=== PATIENT | male | born 1960 | race Caucasian/White ===

== ENCOUNTER 2018-06-12 06:54 | Day surgery (SDC) | payer OTHER ==
[~2018-06-12 06:54] MED LIST: LIDOCAINE 2% MDV 20 ML VIAL As Ordered; PROPOFOL 200 MG/20 ML VIAL As Ordered
[2018-06-12] MEDS: NS 1,000 ML IV (07:20)
== END 2018-06-12 09:03 | disposition home or self-care (01) ==
LOC: M OPP 06:54
DX: Z12.11 Encounter for screening for malignant neoplasm of colon (principal); K62.1 Rectal polyp; K64.1 Second degree hemorrhoids; K57.30 Diverticulosis of large intestine without perforation or abscess without bleeding; M19.90 Unspecified osteoarthritis, unspecified site; J44.9 Chronic obstructive pulmonary disease, unspecified; I51.7 Cardiomegaly; F17.210 Nicotine dependence, cigarettes, uncomplicated; Z79.82 Long term (current) use of aspirin; Z79.899 Other long term (current) drug therapy; Z80.0 Family history of malignant neoplasm of digestive organs
CPT/HCPCS: 45380

== ENCOUNTER → 2018-12-09 | Outpatient (CLI) | payer OTHER ==
[~2018-12-09] MED LIST changes: +ALEV220T26 PO; +ASPI1TAB15 PO; -LIDOCAINE 2% MDV 20 ML VIAL As Ordered; +PROAAER10 INH; -PROPOFOL 200 MG/20 ML VIAL As Ordered; +SYMB16INH INH
[2018-12-09 17:32] LABS: BASO # 0.1 10^3/uL (0.0-0.2); EOS # 0.2 10^3/uL (0.0-0.50); EOS % 2.6 % (0.0-3.0); HEMATOCRIT 43.5 % (42.0-52.0); HEMOGLOBIN 14.9 g/dl (13.5-17.5); LYMPH # 1.5 10^3/uL (1.5-4.5); LYMPH % 18.6 % (24.0-44.0); MEAN CORPUSCULAR HEMOGLOBIN 31.4 pg (27.0-33.0); MEAN CORPUSCULAR HGB CONC 34.3 g/dl (32.0-36.5); MEAN CORPUSCULAR VOLUME 91.8 fl (80.0-96.0); MONO # 0.6 10^3/uL (0.0-0.8); MONO % 6.9 % (0.0-5.0); NEUTROPHILS # 5.7 10^3/uL (1.8-7.7); NEUTROPHILS % 70.5 % (36.0-66.0); PLATELET COUNT, AUTOMATED 277 10^3/uL (150-450); RED BLOOD COUNT 4.74 10^6/uL (4.30-6.10); WHITE BLOOD COUNT 8.1 10^3/uL (4.0-10.0)
[2018-12-09 18:02] LABS: BLOOD UREA NITROGEN 15 MG/DL (7-18); CARBON DIOXIDE LEVEL 29 MEQ/L (21-32); CHLORIDE LEVEL 104 MEQ/L (98-107); CREATININE FOR GFR 0.74 MG/DL (0.70-1.30); GLOMERULAR FILTRATION RATE > 60.0 (>49); GLUCOSE, FASTING 61 MG/DL (70-100); POTASSIUM SERUM 4.1 MEQ/L (3.5-5.1); SODIUM LEVEL 141 MEQ/L (136-145)
== END ==
LOC: M LAB 16:30
PROVIDERS: ATTEND Surgery Vascular Surgery
DX: I70.213 Atherosclerosis of native arteries of extremities with intermittent claudication, bilateral legs (principal)

== ENCOUNTER → 2018-12-19 | Outpatient (CLI) | payer OTHER ==
[~2018-12-19] MED LIST changes: +HEPARIN 1,000 UNITS/ML 10ML VIAL (FOR RADIOLOGY& DIALYSIS ONLY) As Ordered ONE; +ISOVUE-300 61% 50ML VIAL (Q9967) As Ordered ONE; +LIDOCAINE 2% MDV 20 ML VIAL As Ordered ONE; +MIDAZOLAM INJ 2 MG/2 ML VIAL (J2250) As Ordered ONE; +fentaNYL 100 MCG/2 ML INJECTION (J3010) As Ordered ONE
--- NOTE | 2018-12-19 10:52 | REP ---
Clinical: Abdominal aortic aneurysm. Technique: Axial noncontrast images from the lung bases to the pubic symphysis with coronal and sagittal re-formations. Findings: Small amounts of residual contrast within the urinary tract collecting system consistent with the prior interventional procedure. Abdominal aorta demonstrates moderate atherosclerotic changes including scattered intimal calcifications and small amount of mural thrombus. There appears to be a very subtle dumbbell shaped aneurysmal contour to the infrarenal abdominal aorta which measures 3.2 cm maximal diameter with the aorta tapering to 2.1 cm maximal diameter just above the bifurcation to common iliac arteries where small curvilinear calcifications are identified deep to the aortic contour which raise the possibility of partially calcified mural thrombus versus subtle dissection. No periaortic fluid or inflammatory stranding noted. Lung bases suggest moderate COPD and emphysematous changes. Liver, spleen, pancreas, gallbladder, bilateral adrenal glands and kidneys appear relatively normal. The enteric system is without obstruction or acute inflammatory process. Pelvis demonstrates normal appearing bladder and age appropriate prostate/seminal vesicles. No ascites. No free air. No adenopathy. Musculoskeletal structures demonstrate age-related degenerative changes. Impression: Atherosclerotic changes of the aorta with subtle dumbbell shaped aneurysmal dilatation to the infrarenal aorta as detailed above. Electronically Signed by Carlos Madsen MD 12/19/2018 10:44 A
--- NOTE | 2019-01-15 15:31 | REPIR ---
DATE OF PROCEDURE: 12/19/2018 ATTENDING SURGEON: Dr. Diana Correa DUMP ATTENDANT: PREOPERATIVE DIAGNOSIS: Right lower extremity pain. POSTOPERATIVE DIAGNOSIS: Right lower extremity pain. PROCEDURE: Aortogram, iliofemoral angiogram, selective right common femoral artery catheter placement with right lower extremity angiogram, selective right superficial femoral artery catheter placement with right lower extremity angiogram. INDICATION: The patient is a 58-year-old male with right lower extremity claudication and an ultrasound showing atherosclerotic arterial occlusive disease in the superficial femoral and popliteal arteries. The patient will undergo an angiogram and possible angioplasty stent and/or atherectomy. Risks, benefits and alternative treatment options were discussed with the patient. ANESTHESIA: Local with sedation with 1 mg Versed and 50 mcg of fentanyl and 10 mL of 2% lidocaine. FLUORO TIME: 0.7 minutes. CONTRAST: 12.5 mL. SEDATION TIME: From 9:20 a.m. to 10:02 a.m. for a total of 42 minutes. COMPLICATIONS: None. DRAINS: None. SPECIMENS: None. IMPLANT: Left common femoral arteriotomy closure with a MYNX. DESCRIPTION OF PROCEDURE: The patient was taken to the angiography suite and placed supine on the angiography table and then prepped and draped in a standard surgical fashion. The left common femoral artery was cannulated with a micropuncture needle. A catheter was placed in the aorta and aortogram was performed. The catheter was pulled down to the level of the bifurcation of the iliac arteries and an iliofemoral angiogram was performed. A catheter was directed over the bifurcation of the iliac arteries and placed in the right common femoral artery and right lower extremity angiogram was performed showing complete occlusion of the distal right superficial femoral and proximal popliteal artery. Catheters and wires were removed and a MYNX closure device was used to close the arteriotomy in the left common femoral artery with an additional 10 minutes of adjunctive pressure applied for hemostasis. Dressings were then applied. The patient tolerated the procedure well. All instrument, sponge, and needle counts were correct at the end of the case. There were no complications. Dr. Correa was present for and directed the entire case. The patient was transferred to the holding area and subsequently discharged in stable condition.
== END | disposition home or self-care (01) ==
LOC: M IRPRO 06:23
PROVIDERS: ATTEND Surgery Vascular Surgery
DX: I70.211 Atherosclerosis of native arteries of extremities with intermittent claudication, right leg (principal); I70.92 Chronic total occlusion of artery of the extremities
CPT/HCPCS: 36246; 74176; 75710; C1760; C1769; C1887; C1894; G0269; J2250; J3010; Q9967

== ENCOUNTER → 2018-12-26 | Outpatient (CLI) | payer OTHER ==
[~2018-12-26] MED LIST changes: +PROTAMINE SULF INJ 50 MG/5 ML VIAL (J2720) As Ordered ONE
--- NOTE | 2019-01-15 15:58 | REPIR ---
DATE OF PROCEDURE: 12/26/2018 ATTENDING SURGEON: Dr. 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 PROCEDURE: Ultrasound-guided right posterior tibial artery cannulation, right lower extremity angiogram, right superficial femoral and popliteal artery angioplasty and stent with a 7 x 120 Mary Drug-Eluting Stent, Mynx closure of the left common femoral arteriotomy. INDICATION: The patient is a 58-year-old male with severe debilitating right lower extremity claudication who had undergo angiography and found to have a right superficial femoral and popliteal artery occlusion. The patient will undergo angiography with possible angioplasty stent and/or atherectomy. Risks, benefits, and alternative options were discussed with the patient. ANESTHESIA: Was local with sedation with 5 mg Versed, 250 mcg of fentanyl and 20 mL of 2% lidocaine. STATION TIME: Was from 9:17 a.m. to 12:36 p.m. FLUORO TIME: 44.1 minutes. CONTRAST: 30 mL. HEPARIN: 7000 units followed by an additional 4000 units. PROTAMINE: 50 mg. COMPLICATIONS: None. DRAINS: None. SPECIMENS: None. IMPLANTS: 7 x 120 Mary Drug-Eluting Stent. PROCEDURE: The patient was taken to the angiography suite, placed supine on the angiography room table and then prepped and draped in a standard surgical fashion. Left common femoral artery was cannulated and multiple attempts were made to traverse through the occlusion in the right lower extremity from the left femoral approach without success. The right posterior tibial artery was then cannulated using ultrasound guidance and the chronic total occlusion was crossed retrograde and antegrade, the wire was snared and pulled through the sheath after which the chronic total occlusion in the right superficial femoral and popliteal arteries with angioplasty and stented with a 7 x 120 Mary Drug-Eluting Stent postdilated with a 6 x 200 balloon. Catheters and wires were removed after angiography showed good angiographic result with resolution of the chronic total occlusion. A Mynx closure device was used close the arteriotomy in the left common femoral artery with an additional 10 minutes of adjunctive pressure applied for hemostasis. The cannulation in the right posterior tibial artery was compressed manually for hemostasis. Dressings were then applied. The patient tolerated the procedure well. All instruments, sponge, and needle counts were correct at the end the case. There were no complications. Dr. Correa was present for and directed the entire case. The patient was transferred to holding area and subsequent discharged home in stable condition.
== END | disposition home or self-care (01) ==
LOC: M IRPRO 07:59
PROVIDERS: ATTEND Surgery Vascular Surgery
DX: I70.211 Atherosclerosis of native arteries of extremities with intermittent claudication, right leg (principal); I70.92 Chronic total occlusion of artery of the extremities; I71.4 Abdominal aortic aneurysm, without rupture
CPT/HCPCS: 36140; 37226; C1725; C1760; C1769; C1874; C1876; C1887; C1894; J2250; J2720; J3010; Q9967

== ENCOUNTER → 2019-01-17 | Outpatient (CLI) | payer OTHER ==
[~2019-01-17] MED LIST changes: -HEPARIN 1,000 UNITS/ML 10ML VIAL (FOR RADIOLOGY& DIALYSIS ONLY) As Ordered ONE; -ISOVUE-300 61% 50ML VIAL (Q9967) As Ordered ONE; -LIDOCAINE 2% MDV 20 ML VIAL As Ordered ONE; -MIDAZOLAM INJ 2 MG/2 ML VIAL (J2250) As Ordered ONE; -PROTAMINE SULF INJ 50 MG/5 ML VIAL (J2720) As Ordered ONE; -fentaNYL 100 MCG/2 ML INJECTION (J3010) As Ordered ONE
--- NOTE | 2019-01-17 10:38 | REP ---
UNILATERAL RIGHT LOWER EXTREMITY ARTERIAL DOPPLER ULTRASOUND: HISTORY: Peripheral vascular disease. Recent angioplasty and stent placement. On December 26, 2018 the patient had a distal SFA angioplasty. The stent is visible in the distal SFA and popliteal artery on the right. Triphasic and biphasic waveforms are seen throughout the right lower extremity. Some mixed plaquing is visible. Ankle brachial index on the right is normal at 1.06. Velocity chart right lower extremity: Right SIGNAL CONSTRUCTOR 158 cm/s Profunda 65 Proximal SFA 122 Mid SFA 121 Distal SFA 110 Popliteal 56 Proximal MATTHEW 103 Tibioperoneal trunk 90 Proximal FISHER MUSSEL 80 Distal FISHER MUSSEL 110 Distal AT A 97 Electronically Signed by Kofi Shane MD 01/17/2019 02:40 P
== END ==
LOC: M RAD 07:21
PROVIDERS: ATTEND Surgery Vascular Surgery
DX: I73.9 Peripheral vascular disease, unspecified (principal); Z95.5 Presence of coronary angioplasty implant and graft

== ENCOUNTER → 2019-07-28 | Outpatient (CLI) | payer OTHER ==
--- NOTE | 2019-07-28 12:52 | REP ---
ULTRASOUND ABDOMINAL WALL: Real-time sonographic evaluation of the anterior abdominal wall performed in the supraumbilical region to evaluate a possible abnormality which is also painful. At that location, there is an oval area of fluid and small amount of fat compatible with a hernia. This is along the anterior aspect of the rectus abdominis muscle. There is a defect in the muscle 4 x 8 mm. The hernia sac measures 2.2 x 0.8 x 1.7 cm. It is not reducible with transducer pressure. There is no internal bowel. This does not increase with Valsalva maneuver. IMPRESSION: Small midline anterior abdominal hernia in the supraumbilical region contains fat and fluid as discussed in detail above. The defect measures 4 x 8 mm. It is not reducible. Electronically Signed by Germán Benites MD 07/28/2019 04:41 P
== END ==
LOC: M RAD 06:47
PROVIDERS: ATTEND Surgery
DX: K43.9 Ventral hernia without obstruction or gangrene (principal)

== ENCOUNTER → 2019-08-25 | Outpatient (CLI) | payer OTHER ==
--- NOTE | 2019-08-25 09:01 | REP ---
RIGHT LOWER EXTREMITY DUPLEX DOPPLER ARTERIAL ULTRASOUND: Real-time ultrasound evaluation and duplex Doppler interrogation of right lower extremity arterial system performed and compared to a prior study of 01/17/2019. RAISA is 1.1. Once again there is a stent in the distal right superficial femoral artery and another in the right popliteal artery, by approximately 2 cm gap. Triphasic and biphasic waveforms are seen diffusely throughout the right lower extremity. Both stents demonstrate patent internal flow. There are relatively normal flow velocities throughout the right lower extremity arterial system. There is somewhat decreased velocity measured within the left popliteal stent, but this could be artifactual. RIGHT Peak systolic velocity common femoral artery 108.0 cm/s Profunda 70.4 cm/s Proximal SFA 107.0 cm/s Mid SFA 65.0 cm/s Distal SFA 156.0 cm/s SFA stent 183.0 cm/s Post SFA stent 34.0 cm/s Popliteal stent 39.0 cm/s Post popliteal stent 106.0 cm/s Proximal MATTHEW 88.0 cm/s Tibioperoneal trunk 109.0 cm/s Proximal SENIOR DESIGN ENGINEER 64.0 cm/s Distal SENIOR DESIGN ENGINEER 85.0 cm/s Distal MATTHEW 69.0 cm/s IMPRESSION: Patent stents in the distal right SFA and popliteal arteries as discussed above. No compelling duplex Doppler sonographic evidence of hemodynamically significant stenosis. Electronically Signed by Germán Benites MD 08/25/2019 11:23 P
== END ==
LOC: M RAD 06:17
PROVIDERS: ATTEND Physician Assistant
DX: I70.201 Unspecified atherosclerosis of native arteries of extremities, right leg (principal)

== ENCOUNTER → 2020-03-03 | Outpatient (CLI) | payer OTHER ==
--- NOTE | 2020-03-04 05:08 | REP ---
Clinical: Status post right femoral artery/popliteal artery stent placement. Technique: Real time ortiz scale and color Doppler evaluation of the bilateral lower extremity arterial vasculature using linear high frequency transducer. Findings: Right lower extremity demonstrates patent right distal SFA/popliteal artery stent. Moderate stenosis through the mid right superficial artery noted along with moderate generalized atherosclerotic changes. Triphasic and biphasic arterial wave patterns noted. Left lower extremity demonstrates mild generalized atherosclerotic plaquing without significant stenosis. Triphasic and biphasic arterial wave patterns noted. Peak systolic velocities (cm/sec) RIGHT LEFT Common femoral artery 92 123 Profunda femoris 52 101 SFA (proximal) 129 94 SFA (mid) 108/197 73 SFA (distal) stented 84 Popliteal artery stented 86 MATTHEW (prox.) 100 73 Tibioperoneal trunk 62 68 LOAN OFFICER (prox.) 95 61 LOAN OFFICER (distal) 83 46 MATTHEW (distal) 76 62 I. Proximal stent in the distal superficial femoral artery Pre stent 131 cm/sec Proximal stent 166 Mid stent 108 Distal stent 41 II. Distal stent extending through the popliteal artery Proximal stent 47 cm/sec Mid stent 44 Distal stent 46 Impression: 1. Patent right SFA/popliteal stent with velocities as noted above. 2. Moderate stenosis through the mid right superficial femoral artery. 3. Mild/moderate generalized atherosclerotic changes. Electronically Signed by Carlos Madsen MD 03/04/2020 05:00 A
== END ==
LOC: M RAD 06:54
PROVIDERS: ATTEND Physician Assistant
DX: I70.213 Atherosclerosis of native arteries of extremities with intermittent claudication, bilateral legs (principal)

== ENCOUNTER → 2020-04-05 | Outpatient (CLI) | payer OTHER ==
--- NOTE | 2020-04-06 03:47 | REP ---
Clinical: Possible abdominal aortic aneurysm. Technique: Real time ortiz scale ultrasound examination using curved array transducer. Findings: Mild atheromatous changes noted. There is evidence for a mild mid to distal abdominal aortic aneurysm which measures 3.6 x 3.7 cm maximal diameter and 6.9 cm in craniocaudal length tapering to normal caliber at the level of the iliac bifurcation. Relation of the aneurysm to the renal arteries cannot be evaluated due to interposed bowel gas. Proximal aorta: 2.9 x 3.0 cm Aorta at renal arteries: Obscured by bowel gas Mid aorta: 2.2 x 2.3 cm Distal aorta: 3.6 x 3.7 cm Right common iliac artery: 1.0 x 1.1 cm Left common iliac artery: 1.2 x 1.3 cm Impression: Mild mid to distal abdominal aortic aneurysm. Electronically Signed by Carlos Madsen MD 04/06/2020 03:39 A
== END ==
LOC: M RAD 08:37
PROVIDERS: ATTEND Physician Assistant
DX: I71.4 Abdominal aortic aneurysm, without rupture (principal)

== ENCOUNTER → 2020-11-22 | Outpatient (CLI) | payer OTHER ==
[~2020-11-22] MED LIST changes: +ASPI-546 PO; -ASPI1TAB15 PO
--- NOTE | 2020-11-22 07:51 | REP ---
INDICATION: AAA COMPARISON: None TECHNIQUE: Axial noncontrast images from the thoracic inlet to the upper abdomen with coronal and sagittal reformations. This CT examination was performed using the following dose reduction techniques: Automated exposure control, adjustment of mA and/or kv according to the patient's size, and use of iterative reconstruction technique. FINDINGS: Thoracic aorta demonstrates mild partially calcified atheromatous plaquing without aneurysm. The ascending thoracic aorta measures up to 3.3 cm maximal diameter while the descending thoracic aorta tapers from 2.6 cm to 2.3 cm diameter. Heart and pericardium are grossly normal. Pulmonary vasculature appears normal. Moderate to advanced COPD/emphysematous changes noted with mild bronchiectasis. No consolidation, suspicious nodule or mass. No effusion. No pneumothorax. No adenopathy. Surrounding musculoskeletal structures are intact and without acute osseous abnormality incidental note is made of suspected old healed sternal fracture best identified on sagittal reformations. IMPRESSION: 1. No evidence for thoracic aortic aneurysm. 2. Moderate to advanced COPD/emphysematous changes. <Electronically signed by Carlos Madsen > 11/22/20 0616
--- NOTE | 2020-11-22 07:57 | REP ---
INDICATION: AAA COMPARISON: 12/19/2018 TECHNIQUE: Axial noncontrast images from the lung bases to the pubic symphysis with coronal and sagittal reformations. This CT examination was performed using the following dose reduction techniques: Automated exposure control, adjustment of mA and/or kv according to the patient's size, and use of iterative reconstruction technique. FINDINGS: The aorta demonstrates mixed atherosclerotic changes with partially calcified intimal changes and elements of soft plaquing. There is mild stable aneurysmal dilatation to the infrarenal aorta which measures up to approximately 3.4 cm maximal diameter. No periaortic inflammatory stranding or fluid identified. The distal aorta just above the bifurcation to iliac arteries tapers to normal and measures 2.2 cm diameter with the bilateral common iliac arteries measuring 13 mm diameter. Liver, spleen, pancreas, gallbladder, right adrenal gland and bilateral kidneys are normal. Left adrenal gland demonstrates stable benign appearing hyperplastic changes. The enteric system is without obstruction or acute inflammatory process. Moderate fecal stasis is suggested. Pelvis demonstrates normal bladder and mildly prominent prostate gland measuring approximately 4 cm maximal transverse diameter. No ascites. No free air. No significant intraperitoneal or retroperitoneal adenopathy. Musculoskeletal structures demonstrate age-related changes without acute osseous abnormality. IMPRESSION: Moderate mixed atheromatous changes to the aorta with mild aneurysmal dilatation measuring up to 3.4 cm maximal diameter. <Electronically signed by Carlos Madsen > 11/22/20 0751
== END ==
LOC: M RAD 06:55
PROVIDERS: ATTEND Physician Assistant
DX: I71.4 Abdominal aortic aneurysm, without rupture (principal); J44.9 Chronic obstructive pulmonary disease, unspecified

== ENCOUNTER → 2020-11-25 | Outpatient (CLI) | payer OTHER ==
--- NOTE | 2020-11-25 07:55 | REP ---
INDICATION: ABD PAIN COMPARISON: CT dated 11/22/2020 TECHNIQUE: Real time B-mode ortiz scale ultrasound examination using curved array transducer. FINDINGS: Liver, spleen, and pancreas are normal in contour, size, echogenicity, and overall appearance. Incidental 10 mm echogenic focus in the right inferior hepatic segment suggestive of hemangioma. No focal pancreatic or splenic lesions are identified. The spleen measures 9.6 x 4.8 x 10.4 cm (splenic index: 479). The gallbladder and biliary ductal system are normal and without gallstones, wall thickening, or pericholecystic fluid. No biliary ductal dilatation is appreciated and the common bile duct measures 3.4 mm diameter. The kidneys demonstrate normal reniform shape without hydronephrosis, cystic or mass lesion. Right kidney measures 10.5 x 6.0 x 5.5 cm with suggestions for duplicated collecting system. Left kidney measures 11.3 x 5.4 x 5.2 cm. Atherosclerotic changes to the visualized abdominal aorta noted along with known abdominal aortic aneurysm measuring approximately 3.6 cm maximal diameter. No obvious ascites. IMPRESSION: 1. Possible small 10 mm hemangioma within the right lobe of the liver. 2. Known abdominal aortic aneurysm. 3. No further acute abdominal pathology by ultrasound evaluation. <Electronically signed by Carlos Madsen > 11/25/20 [id number]
== END ==
LOC: M RAD 06:48
PROVIDERS: ATTEND Physician Assistant
DX: R10.9 Unspecified abdominal pain (principal); I71.4 Abdominal aortic aneurysm, without rupture

== ENCOUNTER → 2021-03-10 | Outpatient (CLI) | payer OTHER ==
--- NOTE | 2021-03-10 09:08 | REP ---
INDICATION: CLAUDICATION COMPARISON: 03/03/2020 TECHNIQUE: Real time benites scale and color Doppler evaluation of the bilateral lower extremity arterial vasculature using linear high frequency transducer. FINDINGS: Benites scale and color images demonstrate moderate atheromatous plaquing. Patent right-sided stents are identified (detailed below). The right lower extremity demonstrates relatively normal velocities and biphasic/triphasic arterial wave patterns. There is a 2.5:1 stenosis in the mid superficial femoral artery above the level of the 1st stent which is similar to prior examination. The left lower extremity demonstrates relatively normal velocities and biphasic/triphasic arterial wave patterns with a 2:1 stenosis in the mid superficial femoral artery noted. Right RAISA: 0.9; Left RAISA: 0.9 Right lower extremity stent from the distal superficial femoral artery Pre anastomosis: 161.8 cm/sec Proximal stent: 146.1 cm/sec Mid stent: 114.1 cm/sec Distal stent: 38.9 cm/sec Right lower extremity stent from the distal superficial femoral artery to popliteal artery Pre anastomosis: 32.4 cm/sec Proximal stent: 46.0 cm/sec Mid stent: 39.5 cm/sec Distal stent: 48.0 cm/sec Peak systolic velocities (cm/sec) Common femoral artery: Right 104.5; Left 118.0 Profunda femoris: Right 40.4; Left 106.0 SFA (proximal): Right 99.1; Left 111.2 SFA (mid): Right 64.3; Left 60.6-126.3 SFA (distal): Right 161.8; Left 88.1 Popliteal artery: Right 67.6; Left 63.3 MATTHEW (prox.): Right 68.5; Left 66.3 Tibioperoneal trunk: Right 67.2; Left 72.9 DOMESTIC VIOLENCE ADVOCATE (prox.): Right 50.0; Left 49.5 DOMESTIC VIOLENCE ADVOCATE (distal): Right 57.9; Left 47.3 MATTHEW (distal): Right 68.9; Left 35.7 IMPRESSION: Atheromatous changes with areas of stenosis as described above. <Electronically signed by Carlos Madsen > 03/10/21 0904
== END ==
LOC: M RAD 07:16
PROVIDERS: ATTEND Physician Assistant
DX: I70.213 Atherosclerosis of native arteries of extremities with intermittent claudication, bilateral legs (principal)

== ENCOUNTER 2022-05-03 14:07 | Emergency (ER) | payer OTHER ==
[~2022-05-03] VITALS: Ht 177.8 cm; Wt 75.0 kg
[2022-05-03] MEDS ORDERED: ACET25TA12 PO (14:14)
[2022-05-03] MEDS ORDERED: ATOR40TA75 (14:14)
[2022-05-03] MEDS ORDERED: FLUT1BLS8 (14:14)
[2022-05-03] MEDS ORDERED: AMLO2.5T3 (14:14)
[2022-05-03] MEDS ORDERED: KETOROLAC 30 MG/ML 1ML VIAL IV ONE (15:50)
[2022-05-03 16:15] LABS: BASO # 0.1 10^3/uL (0.0-0.2); BASO % 1.1 % (0.0-1.0); EOS # 0.2 10^3/uL (0.0-0.5); EOS % 3.1 % (0.0-3.0); HEMATOCRIT 43.3 % (42.0-52.0); HEMOGLOBIN 14.5 g/dl (13.5-17.5); LYMPH # 1.1 10^3/uL (1.5-5.0); LYMPH % 18.4 % (24.0-44.0); MEAN CORPUSCULAR HEMOGLOBIN 31.5 pg (27.0-33.0); MEAN CORPUSCULAR HGB CONC 33.5 g/dl (32.0-36.5); MEAN CORPUSCULAR VOLUME 94.1 fl (80.0-96.0); MONO # 0.4 10^3/uL (0.0-0.8); MONO % 6.1 % (2.0-8.0); NEUTROPHILS # 4.4 10^3/uL (1.5-8.5); PLATELET COUNT, AUTOMATED 224 10^3/uL (150-450); WHITE BLOOD COUNT 6.2 10^3/uL (4.0-10.0)
[2022-05-03 16:42] LABS: ALBUMIN 3.5 GM/DL (3.2-5.2); BILIRUBIN,DIRECT 0.1 MG/DL (0.0-0.2); BILIRUBIN,TOTAL 0.4 MG/DL (0.2-1.0); TOTAL PROTEIN 6.7 GM/DL (6.4-8.2)
[2022-05-03] MEDS ORDERED: CYCL5TAB PO (17:03)
[2022-05-03] MEDS ORDERED: NAPR-837 PO (17:03)
[2022-05-03 17:12] VITALS: BP 137/91
== END 2022-05-03 18:10 | disposition home or self-care (01) ==
LOC: M ED 14:07
DX: S39.012A Strain of muscle, fascia and tendon of lower back, initial encounter (principal); I10 Essential (primary) hypertension; E78.5 Hyperlipidemia, unspecified; J44.9 Chronic obstructive pulmonary disease, unspecified; K57.92 Diverticulitis of intestine, part unspecified, without perforation or abscess without bleeding; I71.4 Abdominal aortic aneurysm, without rupture; Z95.5 Presence of coronary angioplasty implant and graft; F17.200 Nicotine dependence, unspecified, uncomplicated; Z79.899 Other long term (current) drug therapy
CPT/HCPCS: 74176; 80047; 80076; 81001; 83690; 85025; 96374; 99284; J1885

== ENCOUNTER → 2022-09-10 | Outpatient (CLI) | payer OTHER ==
[~2022-09-10] MED LIST changes: +ACET25TA12 PO; +ALBU8.5H INH; +AMLO2.5T3; +ATOR40TA75; +CYCL5TAB PO; +FLUT1BLS8; +NAPR-837 PO
== END ==
LOC: M LABSMTC 11:00
PROVIDERS: ATTEND Anesthesiology
DX: Z01.812 Encounter for preprocedural laboratory examination (principal); Z20.822 Contact with and (suspected) exposure to COVID-19

== ENCOUNTER 2022-09-13 09:05 | Day surgery (SDC) | payer OTHER ==
[~2022-09-13] VITALS: Ht 177.8 cm; Wt 71.1 kg
[~2022-09-13 09:05] MED LIST changes: +NS 1,000 ML IV ONE
[2022-09-13] MEDS ORDERED: LIDOCAINE 2% 100MG/5ML SDV (FOR ANES.) As Ordered ONE (10:18)
[2022-09-13] MEDS ORDERED: propofoL 200 MG/20 ML VIAL As Ordered ONE ×2 (10:18→10:20)
[2022-09-13 11:07] VITALS: BP 150/85
== END 2022-09-13 11:09 | disposition home or self-care (01) ==
LOC: M OPP 09:05
PROVIDERS: ATTEND Surgery
DX: Z86.010 Personal history of colon polyps (principal); Z80.0 Family history of malignant neoplasm of digestive organs; K63.5 Polyp of colon; K64.0 First degree hemorrhoids; K57.30 Diverticulosis of large intestine without perforation or abscess without bleeding; F17.200 Nicotine dependence, unspecified, uncomplicated; Z79.02 Long term (current) use of antithrombotics/antiplatelets; Z79.1 Long term (current) use of non-steroidal anti-inflammatories (NSAID); Z79.51 Long term (current) use of inhaled steroids; Z79.899 Other long term (current) drug therapy; I10 Essential (primary) hypertension; E78.00 Pure hypercholesterolemia, unspecified; J44.9 Chronic obstructive pulmonary disease, unspecified

== ENCOUNTER → 2022-10-19 | Outpatient (CLI) | payer OTHER ==
[~2022-10-19] MED LIST changes: -NS 1,000 ML IV ONE
== END ==
LOC: M RAD 06:44
PROVIDERS: ATTEND Surgery Vascular Surgery
DX: I71.40 Abdominal aortic aneurysm, without rupture, unspecified (principal); I70.213 Atherosclerosis of native arteries of extremities with intermittent claudication, bilateral legs; Z95.820 Peripheral vascular angioplasty status with implants and grafts

== ENCOUNTER → 2022-11-24 | Outpatient (CLI) | payer OTHER ==
[~2022-11-24] MED LIST changes: +ISOVUE-370 76% 100ML VIAL As Ordered ONE
== END ==
LOC: M RAD 13:07
PROVIDERS: ATTEND Surgery Vascular Surgery
DX: I70.213 Atherosclerosis of native arteries of extremities with intermittent claudication, bilateral legs (principal); I71.40 Abdominal aortic aneurysm, without rupture, unspecified; I70.0 Atherosclerosis of aorta; T82.856A Stenosis of peripheral vascular stent, initial encounter; Y83.1 Surgical operation with implant of artificial internal device as the cause of abnormal reaction of the patient, or of later complication, without mention of misadventure at the time of the procedure

== ENCOUNTER → 2022-12-26 | Outpatient (CLI) | payer OTHER ==
[~2022-12-26] MED LIST changes: +ACETAMINOPHEN 325 MG TAB As Ordered ONE; +ACETAMINOPHEN TAB 650MG DOSE (2X325MG) PO PRN; +ALTEPLASE 2MG/2ML VIAL As Ordered ONE; +CLOP75TA99 PO; +CLOPIDOGREL 300 MG TAB (PLAVIX) As Ordered ONE; +CLOPIDOGREL 300 MG TAB (PLAVIX) PO ONE; +HEPARIN 1,000UNITS/ML 10ML VIAL (FOR RADIOLOGY & DIALYSIS ONLY) As Ordered ONE; +ISOVUE-300 61% 100ML VIAL As Ordered ONE; -ISOVUE-370 76% 100ML VIAL As Ordered ONE; +LIDOCAINE 1% MDV 20ML VIAL As Ordered ONE; +MEPERIDINE INJ 25 MG/ML VIAL As Ordered ONE; +MIDAZOLAM INJ 2MG/2ML VIAL As Ordered ONE; +NITROGLYCERIN IN D5W 25MG/250ML (100MCG/ML) As Ordered ONE; +ceFAZolin 2 GM/D5W 50 ML IV BAG As Ordered ONE; +ceFAZolin SOD 2 GM in IV 1 EA IV ONE; +fentaNYL 100 MCG/2 ML INJECTION As Ordered ONE
[2022-12-26 09:32] LABS: HEMATOCRIT 45.6 % (42.0-52.0); MEAN CORPUSCULAR HEMOGLOBIN 31.1 pg (27.0-33.0); MEAN CORPUSCULAR HGB CONC 32.9 g/dl (32.0-36.5); MEAN CORPUSCULAR VOLUME 94.4 fl (80.0-96.0); PLATELET COUNT, AUTOMATED 246 10^3/uL (150-450); RED BLOOD COUNT 4.83 10^6/uL (4.30-6.10); WHITE BLOOD COUNT 6.5 10^3/uL (4.0-10.0)
[2022-12-26 09:57] LABS: BLOOD UREA NITROGEN 13 MG/DL (9-23); CALCIUM LEVEL 8.7 MG/DL (8.3-10.6); CARBON DIOXIDE LEVEL 30 MMOL/L (20-31); CHLORIDE LEVEL 104 MMOL/L (98-107); CREATININE FOR GFR 0.79 MG/DL (0.70-1.30); GLOMERULAR FILTRATION RATE > 60.0 (>49); GLUCOSE, FASTING 95 MG/DL (74-106); POTASSIUM SERUM 5.1 MMOL/L (3.5-5.1); SODIUM LEVEL 141 MMOL/L (136-145)
[2022-12-26 10:21] LABS: INR 0.88; PROTHROMBIN TIME 12.1 SECONDS (12.5-14.5)
[2022-12-26 16:25] VITALS: BP 143/74
== END ==
LOC: M IRPRO 08:36
PROVIDERS: ATTEND Surgery Vascular Surgery
DX: I70.213 Atherosclerosis of native arteries of extremities with intermittent claudication, bilateral legs (principal); I71.40 Abdominal aortic aneurysm, without rupture, unspecified; F17.210 Nicotine dependence, cigarettes, uncomplicated
CPT/HCPCS: 36245; 80048; 85027; 85610; 86850; 86900; 86901; 87635; 99152; 99153; C1725; C1760; C1769; C1874; C1884; C1887; C1894; J0690; J1644; J2175; J2250; J2997; J3010

== ENCOUNTER → 2023-01-02 | Outpatient (CLI) | payer OTHER ==
[~2023-01-02] MED LIST changes: -ACETAMINOPHEN 325 MG TAB As Ordered ONE; -ACETAMINOPHEN TAB 650MG DOSE (2X325MG) PO PRN; -ALTEPLASE 2MG/2ML VIAL As Ordered ONE; -CLOPIDOGREL 300 MG TAB (PLAVIX) As Ordered ONE; -CLOPIDOGREL 300 MG TAB (PLAVIX) PO ONE; -HEPARIN 1,000UNITS/ML 10ML VIAL (FOR RADIOLOGY & DIALYSIS ONLY) As Ordered ONE; -ISOVUE-300 61% 100ML VIAL As Ordered ONE; -LIDOCAINE 1% MDV 20ML VIAL As Ordered ONE; -MEPERIDINE INJ 25 MG/ML VIAL As Ordered ONE; -MIDAZOLAM INJ 2MG/2ML VIAL As Ordered ONE; -NITROGLYCERIN IN D5W 25MG/250ML (100MCG/ML) As Ordered ONE; -ceFAZolin 2 GM/D5W 50 ML IV BAG As Ordered ONE; -ceFAZolin SOD 2 GM in IV 1 EA IV ONE; -fentaNYL 100 MCG/2 ML INJECTION As Ordered ONE
== END ==
LOC: M RAD 12:46
PROVIDERS: ATTEND Surgery Vascular Surgery
DX: I70.213 Atherosclerosis of native arteries of extremities with intermittent claudication, bilateral legs (principal); Z53.8 Procedure and treatment not carried out for other reasons

== ENCOUNTER → 2023-11-27 | Outpatient (REF) | payer MEDICARE, OTHER ==
[2023-11-27 12:29] LABS: HEMOGLOBIN 15.1 g/dl (13.5-17.5); MEAN CORPUSCULAR HGB CONC 32.8 g/dl (32.0-36.5); MEAN CORPUSCULAR VOLUME 97.5 fl (80.0-96.0); PLATELET COUNT, AUTOMATED 215 10^3/uL (150-450); RED BLOOD COUNT 4.72 10^6/uL (4.30-6.10); WHITE BLOOD COUNT 6.2 10^3/uL (4.0-10.0)
[2023-11-27 12:48] LABS: ALBUMIN 3.9 G/DL (3.2-5.2); ALKALINE PHOSPHATASE 58 U/L (46-116); ALT/SGPT 20 U/L (7.0-40); AST/SGOT 16 U/L (<34); BILIRUBIN,TOTAL 0.6 MG/DL (0.3-1.2); BLOOD UREA NITROGEN 21 MG/DL (9-23); CARBON DIOXIDE LEVEL 30 MMOL/L (20-31); CHLORIDE LEVEL 104 MMOL/L (98-107); CHOLESTEROL LEVEL 192 MG/DL (<200); CHOLESTEROL RISK RATIO 2.68 (<5); CREATININE FOR GFR 0.86 MG/DL (0.70-1.30); GLOMERULAR FILTRATION RATE > 60.0 (>49); GLUCOSE, FASTING 94 MG/DL (74-106); HDL CHOLESTEROL 71.5 MG/DL (>40); LDL CHOLESTEROL 107.1 MG/DL (<100); NON-HDL-C 120.5 MG/DL; SODIUM LEVEL 138 MMOL/L (136-145); TOTAL PROTEIN 6.6 G/DL (5.7-8.2); TRIGLYCERIDES LEVEL 67 MG/DL (<150)
== END ==
LOC: M LABWUC 10:26
PROVIDERS: ATTEND Physician Assistant
DX: E78.5 Hyperlipidemia, unspecified (principal); R06.02 Shortness of breath

== ENCOUNTER → 2024-02-27 | Outpatient (CLI) | payer MEDICARE, OTHER | LOC: M PLAIMG 07:59 | PROVIDERS: ATTEND Physician Assistant | DX: K42.9 Umbilical hernia without obstruction or gangrene (principal) ==

== ENCOUNTER → 2024-05-27 | Outpatient (CLI) | payer MEDICARE, OTHER ==
[~2024-05-27] MED LIST changes: +E-Z-GAS II EFFERVESCENT PACKET (SODIUM BICARB./CITRIC ACID/SIMETHICONE) As Ordered ONE; +E-Z-HD 98% w/w 340GM SUSP BTL As Ordered ONE; +E-Z-PAQUE 96% w/w SUSP 176GM BTL As Ordered ONE
== END ==
LOC: M RAD 07:51
PROVIDERS: ATTEND Surgery
DX: K21.9 Gastro-esophageal reflux disease without esophagitis (principal)

== ENCOUNTER 2024-06-18 07:39 | Day surgery (SDC) | payer MEDICARE, OTHER ==
[~2024-06-18] VITALS: Ht 175.3 cm; Wt 71.8 kg
[~2024-06-18 07:39] MED LIST changes: +AMLO1TAB25 PO; +ATOR80TA59 PO; +CLOP75TA2 PO; -E-Z-GAS II EFFERVESCENT PACKET (SODIUM BICARB./CITRIC ACID/SIMETHICONE) As Ordered ONE; -E-Z-HD 98% w/w 340GM SUSP BTL As Ordered ONE; -E-Z-PAQUE 96% w/w SUSP 176GM BTL As Ordered ONE; +FAMO40TA3 PO; +LOSA25TA13 PO; +OMEP-173 PO; +TREL1AER
[2024-06-18] MEDS: NS 1,000 ML IV ONE (07:57)
[2024-06-18] MEDS ORDERED: LIDOCAINE 2% 100MG/5ML SDV (FOR ANES.) As Ordered ONE (08:58)
[2024-06-18] MEDS ORDERED: propofoL 200 MG/20 ML VIAL As Ordered ONE (08:58)
[2024-06-18 09:04] VITALS: TEMP 98.2
[2024-06-18 09:26] VITALS: BP 110/68; O2SAT 94
== END 2024-06-18 09:36 | disposition home or self-care (01) ==
LOC: M OPP 07:39
PROVIDERS: ATTEND Surgery
DX: K29.70 Gastritis, unspecified, without bleeding (principal); K29.80 Duodenitis without bleeding; R10.13 Epigastric pain; F17.200 Nicotine dependence, unspecified, uncomplicated; I10 Essential (primary) hypertension; J44.9 Chronic obstructive pulmonary disease, unspecified; Z79.02 Long term (current) use of antithrombotics/antiplatelets; Z79.51 Long term (current) use of inhaled steroids; Z79.899 Other long term (current) drug therapy

== ENCOUNTER → 2024-07-30 | Outpatient (CLI) | payer MEDICARE, OTHER ==
[2024-07-30 12:53] LABS: APPEARANCE, URINE CLEAR (CLEAR); BACTERIA, URINE AUTO NEGATIVE (NEGATIVE); BILIRUBIN, URINE AUTO NEGATIVE (NEGATIVE); BLOOD, URINE BLOOD NEGATIVE (NEGATIVE); COLOR, URINE YELLOW (YELLOW); GLUCOSE, URINE (UA) AUTO NEGATIVE (NEGATIVE); KETONE, URINE AUTO NEGATIVE (NEGATIVE); LEUKOCYTE ESTERASE, URINE AUTO NEGATIVE (NEGATIVE); MUCUS, URINE SMALL (NEGATIVE); NITRITE, URINE AUTO NEGATIVE (NEGATIVE); PROTEIN, URINE AUTO NEGATIVE (NEGATIVE); RBC, URINE AUTO 1 /HPF (0-3); SPECIFIC GRAVITY URINE AUTO 1.017 (1.002-1.035); SQUAMOUS EPITHELIAL CELL UR AU 0 /HPF (0-6); UROBILINOGEN, URINE AUTO 0.2 mg/dL (0.0-2.0); WBC, URINE AUTO 0 /HPF (0-3)
[2024-07-30 12:58] LABS: HEMATOCRIT 47.5 % (42.0-52.0); HEMOGLOBIN 15.8 g/dl (13.5-17.5); MEAN CORPUSCULAR HEMOGLOBIN 31.9 pg (27.0-33.0); MEAN CORPUSCULAR HGB CONC 33.3 g/dl (32.0-36.5); PLATELET COUNT, AUTOMATED 264 10^3/uL (150-450); RED BLOOD COUNT 4.95 10^6/uL (4.30-6.10); WHITE BLOOD COUNT 5.9 10^3/uL (4.0-10.0)
[2024-07-30 13:17] LABS: PROSTATIC SPECIFIC AG MONITOR 1.39 NG/ML (< 4.00)
[2024-07-30 13:22] LABS: THYROID STIMULATING HORMONE 1.872 uIU/ML (0.55-4.78)
[2024-07-30 13:24] LABS: ALBUMIN 3.8 G/DL (3.2-5.2); ALKALINE PHOSPHATASE 74 U/L (46-116); ALT/SGPT 22 U/L (7.0-40); AST/SGOT 18 U/L (<34); BILIRUBIN,TOTAL 0.7 MG/DL (0.3-1.2); BLOOD UREA NITROGEN 15 MG/DL (9-23); CALCIUM LEVEL 9.2 MG/DL (8.3-10.6); CARBON DIOXIDE LEVEL 30 MMOL/L (20-31); CHLORIDE LEVEL 108 MMOL/L (98-107); CHOLESTEROL LEVEL 182 MG/DL (<200); CREATININE FOR GFR 0.83 MG/DL (0.70-1.30); GLOMERULAR FILTRATION RATE > 60.0 (>49); GLUCOSE, FASTING 91 MG/DL (74-106); HDL CHOLESTEROL 69.8 MG/DL (>40); LDL CHOLESTEROL 97.8 MG/DL (<100); NON-HDL-C 112.2 MG/DL; SODIUM LEVEL 142 MMOL/L (136-145); TOTAL PROTEIN 6.9 G/DL (5.7-8.2); TRIGLYCERIDES LEVEL 72 MG/DL (<150)
== END ==
LOC: M WUC 08:29
PROVIDERS: ATTEND Physician Assistant
DX: I10 Essential (primary) hypertension (principal); J44.9 Chronic obstructive pulmonary disease, unspecified; I73.9 Peripheral vascular disease, unspecified; E78.5 Hyperlipidemia, unspecified; R35.1 Nocturia; Z12.5 Encounter for screening for malignant neoplasm of prostate

== ENCOUNTER → 2024-08-12 | Outpatient (CLI) | payer MEDICARE, OTHER ==
[~2024-08-12] MED LIST changes: +ISOVUE-370 76% 100ML VIAL As Ordered ONE
== END ==
LOC: M RAD 16:28
PROVIDERS: ATTEND Physician Assistant
DX: R14.0 Abdominal distension (gaseous) (principal); R10.84 Generalized abdominal pain; I71.43 Infrarenal abdominal aortic aneurysm, without rupture
CPT/HCPCS: 74174; Q9967

== ENCOUNTER → 2024-12-05 | Outpatient (CLI) | payer MEDICARE, OTHER ==
[~2024-12-05] MED LIST changes: -CYCL5TAB PO; +CYCL5TAB4 PO; -ISOVUE-370 76% 100ML VIAL As Ordered ONE
== END ==
LOC: M RAD 16:31
PROVIDERS: ATTEND Physician Assistant
DX: J44.9 Chronic obstructive pulmonary disease, unspecified (principal); R06.02 Shortness of breath; J98.11 Atelectasis

== ENCOUNTER → 2025-02-10 | Outpatient (CLI) | payer MEDICARE, OTHER | LOC: M RAD 08:11 | PROVIDERS: ATTEND Surgery Vascular Surgery | DX: I71.40 Abdominal aortic aneurysm, without rupture, unspecified (principal) ==

== ENCOUNTER → 2025-02-26 | Outpatient (CLI) | payer MEDICARE, OTHER | LOC: M RAD 14:21 | PROVIDERS: ATTEND Physician Assistant | DX: R06.02 Shortness of breath (principal); J44.9 Chronic obstructive pulmonary disease, unspecified; F17.210 Nicotine dependence, cigarettes, uncomplicated; J43.9 Emphysema, unspecified; J98.11 Atelectasis; I25.10 Atherosclerotic heart disease of native coronary artery without angina pectoris; I70.0 Atherosclerosis of aorta; N62 Hypertrophy of breast; K44.9 Diaphragmatic hernia without obstruction or gangrene ==

== ENCOUNTER → 2025-03-03 | Outpatient (CLI) | payer MEDICARE, OTHER | LOC: M CARPUL 12:31 | PROVIDERS: ATTEND Physician Assistant | DX: R06.02 Shortness of breath (principal) ==

== ENCOUNTER → 2025-06-26 | Outpatient (CLI) | payer MEDICARE, OTHER ==
[2025-06-26 12:05] LABS: PLATELET COUNT, AUTOMATED 316 10^3/uL (150-450)
[2025-06-26 14:16] LABS: ALT/SGPT 28 U/L (7.0-40); AST/SGOT 29 U/L (<34); CALCIUM LEVEL 9.2 MG/DL (8.3-10.6); CARBON DIOXIDE LEVEL 27 MMOL/L (20-31); CHLORIDE LEVEL 105 MMOL/L (98-107); CHOLESTEROL LEVEL 134 MG/DL (<200); CHOLESTEROL RISK RATIO 2.33 (<5); CREATININE FOR GFR 0.80 MG/DL (0.70-1.30); GLOMERULAR FILTRATION RATE > 90.0 (>49); LDL CHOLESTEROL 66.8 MG/DL (<100); NON-HDL-C 76.6 MG/DL; POTASSIUM SERUM 4.3 MMOL/L (3.5-5.1); PROSTATIC SPECIFIC AG MONITOR 1.30 NG/ML (< 4.00); SODIUM LEVEL 142 MMOL/L (136-145); TRIGLYCERIDES LEVEL 49 MG/DL (<150)
== END ==
LOC: M WUC 09:22
PROVIDERS: ATTEND Physician Assistant
DX: I10 Essential (primary) hypertension (principal); E78.5 Hyperlipidemia, unspecified; R35.1 Nocturia; Z12.5 Encounter for screening for malignant neoplasm of prostate; J44.9 Chronic obstructive pulmonary disease, unspecified

== ENCOUNTER → 2025-08-14 | Outpatient (CLI) | payer MEDICARE, OTHER | LOC: M RAD 09:32 | PROVIDERS: ATTEND Physician Assistant | DX: I71.40 Abdominal aortic aneurysm, without rupture, unspecified (principal) ==